=== PATIENT | female | born 1945 | race Caucasian/White ===

== ENCOUNTER 2018-10-22 21:14 | Emergency (ER) | payer MEDICARE ==
[~2018-10-22] VITALS: Ht 162.6 cm; Wt 72.6 kg
[2018-10-22 22:37] LABS: Source, Urine Clean Catch
[2018-10-22 22:40] LABS: Bilirubin, Urine Neg (Neg); Blood, Urine 5+ (Neg); Glucose Qualitative, Urine Neg (Neg); Ketones, Urine 1+ (Neg); Leukocyte Esterase, Urine 3+ (Neg); Nitrite, Urine Pos (Neg); Protein, Urine 3+ (Neg); Specific Gravity, Urine 1.015 (1.003-1.022); Urobilinogen, Urine 1+ (Normal)
[2018-10-22 22:48] LABS: Appearance, Urine Cloudy (Clear); Bacteria Mod /hpf; Color, Urine Red (P-Yellow); Red Blood Cells, Urine TNTC /hpf (0-2); Squamous Epithelial Cells Few /hpf (Few); White Blood Cells, Urine 50-100 /hpf (0-5)
[2018-10-22] MEDS ORDERED: Pyridium100 MG PO (23:36)
[2018-10-22] MEDS ORDERED: CEPH500 PO (23:36)
== END 2018-10-23 00:46 | disposition left against medical advice (07) ==
LOC: ER 21:14
PROVIDERS: Physician Assistant
DX: N39.0 Urinary tract infection, site not specified (principal); I48.91 Unspecified atrial fibrillation; E03.9 Hypothyroidism, unspecified
CPT/HCPCS: 81001; 87077; 87086; 87186; 99283